=== PATIENT | female | born 1935 | race Caucasian/White ===

== ENCOUNTER 2023-11-18 06:46 | Observation (INO) | payer OTHER ==
[2023-11-14 11:55] VITALS: PULSE 57; RESP 18
[2023-11-14 12:03] LABS: BASOPHILS # (AUTO) 0.03 K/uL (0.00-0.20); BASOPHILS % (AUTO) 0.7 % (0.0-5.0); EOSINOPHILS # (AUTO) 0.06 K/uL (0.00-0.70); EOSINOPHILS % (AUTO) 1.3 % (0.0-8.0); HEMATOCRIT 42.4 % (36-48); IMMATURE GRANULOCYTE ABSOLUTE 0.03 K/uL (0-1); LYMPHOCYTES # (AUTO) 1.3 K/uL (1.0-4.8); MEAN CORPUSCULAR HEMOGLOBIN 29.1 pg (27.0-33.0); MEAN CORPUSCULAR VOLUME 88.1 fL (79-99); MONOCYTES # (AUTO) 0.4 K/uL (0.1-1.0); MONOCYTES % (AUTO) 8.1 % (3.0-13.0); NEUTROPHILS # (AUTO) 2.7 K/uL (1.8-7.7); NEUTROPHILS % (AUTO) 60.2 % (40.0-77.0); PLATELET COUNT (AUTO) 190 K/uL (130-400); RED BLOOD CELL COUNT(AUTO) 4.81 MIL/uL (4.00-5.50); RED CELL DISTRIBUTION WIDTH 15.1 % (11.0-15.5); WHITE BLOOD COUNT (AUTO) 4.5 K/uL (4.8-10.8)
[2023-11-14 12:20] LABS: PROTHROMBIN TIME 10.8 SEC (9.6-11.6)
[2023-11-14 12:21] LABS: PARTIAL THROMBOPLASTIN TIME 27.9 SEC (26.3-35.5)
[2023-11-14 12:39] LABS: APPEARANCE,URINE CLEAR (CLEAR); BILIRUBIN,URINE NEGATIVE (NEGATIVE); COLOR,URINE COLORLESS (YELLOW); GLUCOSE, URINE (UA) NEGATIVE (NEGATIVE); KETONES,URINE NEGATIVE (NEGATIVE); LEUKOCYTE ESTERASE ,URINE NEGATIVE Leu/uL (NEGATIVE); NITRATE,URINE NEGATIVE (NEGATIVE); OCCULT BLOOD,URINE NEGATIVE (NEGATIVE); PH,URINE 7.5 (5.0-8.0); PROTEIN,URINE NEGATIVE (NEGATIVE); UROBILINOGEN,URINE 0.2 mg/dL (0.2-1.0)
[2023-11-14 12:42] LABS: B-TYPE NATRIURETIC PEPTIDE 116 pg/mL (0-100)
[2023-11-14 12:43] LABS: ADD UA MICROSCOPIC NO
[2023-11-14 12:45] LABS: CREATININE 0.6 mg/dL (0.5-1.0); POTASSIUM 3.7 mmol/L (3.5-5.1)
[2023-11-18] VITALS (18 sets, daily range): BP systolic 90–185; BP diastolic 49–96; PULSE 69–95; RESP 18–26; O2SAT 99
[~2023-11-18] VITALS: Ht 165.1 cm; Wt 68.0 kg
[~2023-11-18 06:46] MED LIST: AEC81 PO; AMIO200T68 PO; APIX5TAB PO; ATOR40TA71 PO; BUME1TAB6 PO; DILT30TA3 PO; LORA10TA7 PO; LOSA-418 PO; MULT-1367 PO; OMEG100033 PO; POTA-202 PO
[2023-11-18] MEDS: 0.9%NACL 1000ML 1,000 ML IV ONE (08:24)
[2023-11-18] MEDS ORDERED: IODIXANOL 320 MG/ML 100 ML VIAL ONE ×4 (08:55→13:04)
[2023-11-18] MEDS ORDERED: LIDOCAINE HCL 400MG/20ML VIAL ONE (08:55)
[2023-11-18] MEDS ORDERED: MIDAZOLAM HCL 1 MG/ML 2ML VIAL ONE ×2 (09:08→10:39)
[2023-11-18] MEDS ORDERED: FENTANYL CITRATE PF 50 MCG/1 ML 2ML VIAL ONE (09:08)
[2023-11-18] MEDS ORDERED: NITROGLYCERIN 50MG VIAL ONE (09:18)
[2023-11-18] MEDS ORDERED: HEPARIN 10,000 UNIT/10ML (1,000 UNIT/ML) VIAL ONE ×2 (09:19→13:02)
[2023-11-18] MEDS ORDERED: HYDRALAZINE 20MG/ML VIAL ONE ×2 (09:46→13:07)
[2023-11-18] MEDS ORDERED: NITROGLYCERIN 50MG/D5W 250ML 1 BOT ONE (10:15)
[2023-11-18] MEDS ORDERED: CLOPIDOGREL 300MG TAB ONE (14:27)
[2023-11-18] MEDS ORDERED: ASPIRIN 81MG CHEW TAB ONE (15:13)
[2023-11-18] MEDS ORDERED: DEXTROSE 50%-WATER 50 ML DISP.SYRIN IV PRN (15:30)
[2023-11-18] MEDS ORDERED: GLUCAGON 1MG KIT 1 MG ML IM PRN (15:30)
[2023-11-18] MEDS: 0.9%NACL 1000ML 1,000 ML IV SCH (16:07)
[2023-11-18] MEDS: ACETAMINOPHEN 325 MG TAB ONE (22:17)
[2023-11-18] MEDS: ACETAMINOPHEN 325 MG TAB PO PRN (22:46)
[2023-11-19 00:15] VITALS: BP 119/64; PULSE 74; RESP 18
[2023-11-19 03:15] VITALS: BP 129/64; PULSE 70; RESP 18
[2023-11-19 05:16] LABS: CREATININE 0.7 mg/dL (0.5-1.0)
[2023-11-19 05:55] LABS: POTASSIUM 2.8 mmol/L (3.5-5.1)
[2023-11-19] MEDS ORDERED: POTASSIUM CHLORIDE 20MEQ/100ML 100 ML IV PRN (06:00)
[2023-11-19] MEDS: POTASSIUM CHLORIDE 10% ELIXIR 20 MEQ/15 ML UDCUP PO PRN (06:24)
[2023-11-19 07:00] VITALS: BP 141/56; PULSE 65; RESP 22
[2023-11-19] MEDS: CLOPIDOGREL 75MG TAB PO SCH (08:49)
[2023-11-19] MEDS: ASPIRIN 81MG CHEW TAB PO SCH (08:50)
[2023-11-19] MEDS: KCL 20 MEQ ERTAB PO PRN (08:51)
[2023-11-19 10:19] VITALS: O2SAT 99
[2023-11-19] MEDS ORDERED: AEC81 PO (10:19)
[2023-11-19] MEDS ORDERED: CLOP-31 PO (10:19)
== END 2023-11-19 10:55 | disposition home or self-care (01) ==
LOC: DAH 06:46 → DAHIP 06:47 → DAH 06:47 → 2DH 17:51
PROVIDERS: ADMIT Student in an Organized Health Care Education/Training Program; ATTEND Student in an Organized Health Care Education/Training Program
DX: I73.9 Peripheral vascular disease, unspecified (principal); I25.118 Atherosclerotic heart disease of native coronary artery with other forms of angina pectoris; I48.0 Paroxysmal atrial fibrillation; I10 Essential (primary) hypertension; E78.5 Hyperlipidemia, unspecified; E78.00 Pure hypercholesterolemia, unspecified; R73.03 Prediabetes; Z98.61 Coronary angioplasty status; Z79.899 Other long term (current) drug therapy; Z79.01 Long term (current) use of anticoagulants; Z90.710 Acquired absence of both cervix and uterus; Z88.1 Allergy status to other antibiotic agents
CPT/HCPCS: 80048 ×2; 83880; 85025; 85610; 85730; 81003; 36415 ×3; 71045; 93005; 75716; 37252; 96360; 96361; 85347 ×6; C1887 ×3; C1725 ×5; C1876 ×2; C1769 ×17; C1894 ×2; C1760; C1893; C1753; C2623; C9765; G0378 ×20; A4663; J3010; J3490 ×3; J7030; J0360 ×2; J1644 ×5; J2250 ×2; Q9967 ×4; A4215; A4223; A4222; A4221; 75774; 99156; 99157